=== PATIENT | male | born 1975 | race Caucasian/White ===

== ENCOUNTER 2017-04-16 15:44 | Emergency (ER) | payer MEDICAID ==
[~2017-04-16] VITALS: Wt 106.0 kg
--- NOTE | 2017-04-16 16:19 | ERA ---
ER Documentation Chief Complaint Date/Time DATE: 04/16/17 TIME: 16:16 Chief Complaint LEFT KNEE PAIN AFTER PUNCTURE INJURY HPI This is an otherwise healthy 41-year-old male with a chief complaint of left knee pain. 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 Patient denies numbness , tingling, loss of motion. Patient states that is difficult to ambulate secondary to pain. Patient has no medical conditions. Denies any recent travel. States his vaccination status is up-to-date. Denies impact other areas. No other complaints and describes no other associated manifestations. Nursing notes have been reviewed and are consistent with history given. ROS All systems reviewed and are negative except as per history of present illness. Medications Home Meds Active Scripts Ibuprofen* (Motrin*) 600 Mg Tab, 600 MG PO Q6H Y for PAIN AND OR ELEVATED TEMP, #30 TAB Prov:DEMETRIA ELENA MAYLIN 04/16/17 Physical Exam Vitals Vital Signs Date Time Temp Pulse Resp B/P Pulse Ox O2 Delivery O2 Flow Rate FiO2 04/16/17 15:52 98.0 78 18 129/71 99 Physical Exam Const: Healthy-appearing. Well-nourished. Well-developed. No acute distress. Head: Normocephalic, Atraumatic. Eyes: Non-injected; No discharge or foreign body. EOMI and BENNETT bilaterally. Ears: Normal External Ears, EACs clear, TM normal bilaterally without erythema. Nose: Normal external nose; no discharge, septal deviation, or sinus tenderness. Oral: No oral edema visualized. Mucous membranes moist and pink. Neck: No cervical lymphadenopathy, masses or goiter palpated. Trachea midline. Supple ~ No meningismus. Pulm: Good air movement in upper and lower respiratory tracts. No dyspnea, stridor, tripoding or drooling. Clear to auscultation bilaterally. Cardio: Regular rate and rhythm; No murmurs, gallops or rubs auscultated. No JVD grossly observed. Radial and posterior tibial pulses 2+ bilaterally. No cyanosis. Capillary refill less than 2 seconds. Abd: Soft, non tender, non distended. No guarding, masses. Normal bowel sounds. No McBurney's point tenderness. MS: Normal motor strength, normal tone with gross examination. Skin: No petechiae or rashes. No ulcer, induration, jaundice. Good turgor. Back: No midline, flank or CVA tenderness. Ext: Range of motion decreased secondary to pain. Crepitus felt over the infrapatellar area with extension of knee. Neur: Awake, alert and oriented x3. Neurovascularly intact bilaterally. Psych: Normal Mood and Affect. Results 24 hrs Current Medications Medications (Trade) Dose Ordered Sig/Michael Route PRN Reason Start Time Stop Time Status Last Admin Dose Admin Acetaminophen/ Hydrocodone Bitart ([place] (5/325)) 1 tab ONCE ONCE PO 04/16/17 16:30 04/16/17 16:31 DC 04/16/17 16:33 Procedures/MDM This is a 41-year-old male who presents one hour status post left knee injury to the anterior knee as described in history and physical examination. Patient received [place] 5/325 mg p.o. in the ED with adequate relief. X-ray of the affected site was taken. X-ray was read by the radiologist, and given the following impression: 1. No acute fractures or dislocations. 2. Prepatellar soft tissue swelling and small knee effusion. 3. Consider MR to further evaluate as clinically indicated. Patient will be given crutches and Yoan wrap in the ED. Has been educated on RICES therapy. Of little suspicion for bony pathology or neurovascular compromise or bacterial involvement at this time. Have explained to him that I am unable to rule out soft tissue injury and he needs to follow-up with orthopedics. A list of orthopedics and community clinics has been given to him. I have spoke with the patient regarding their condition and future management. They have verbally responded that they understand their status and treatment plan. The patients vitals are stable, and their current condition is appropriate for discharge. The patient will be given discharge instructions with return precautions. Discharge medications: Ibuprofen 600 mg p.o. as needed Departure Diagnosis: Primary Impression: Knee injury Qualified Code: S89.92XA - Knee injury, left, initial encounter Additional Impression: Knee pain Qualified Code: M25.562 - Acute pain of left knee Condition: Stable Additional Instructions: Follow up with your PCP within the next 1-3 days for a more thorough evaluation and a possible referral to a specialist. Return the the emergency department immediately if symptoms worsen or change. If you have any questions regarding medications, ask your pharmacist or us before you leave. If any adverse reactions occur while taking your medications, discontinue the treatment and return to the emergency department immediately. Take your medications as directed, and complete the entire course of treatment. DEMETRIA ELENA PA-C Apr 16, 2017 16:18
[2017-04-16] MEDS ORDERED: HYDROCODONE/APAP (5/325) TAB PO ONE (16:30)
--- NOTE | 2017-04-16 17:24 | RADRPT ---
PROCEDURE: Left knee series CLINICAL INDICATION: Pain status post trauma TECHNIQUE: AP lateral and tunnel views of the left knee COMPARISON: None available FINDINGS: The soft tissues are remarkable for prepatellar soft tissue swelling and a small knee effusion. No acute fractures or dislocations are present. No radiodense foreign bodies are present. IMPRESSION: 1. No acute fractures or dislocations. 2. Prepatellar soft tissue swelling and small knee effusion. 3. Consider MR to further evaluate as clinically indicated. RPTAT: HDC .Myriam Dey MD, MD Date Time Electronically viewed and signed by .Myriam Dey MD, on 04/16/2017 17:24 .C/
[2017-04-16] MEDS ORDERED: IBUP-1542 PO (17:28)
== END 2017-04-16 17:55 | disposition home or self-care (01) ==
LOC: FTE 15:44
DX: S89.92XA Unspecified injury of left lower leg, initial encounter (principal); W22.8XXA Striking against or struck by other objects, initial encounter; Y92.89 Other specified places as the place of occurrence of the external cause
CPT/HCPCS: 73562; Z7610